=== PATIENT | male | born 1985 | race Caucasian/White ===

== ENCOUNTER → 2016-09-27 | Outpatient (CLI) | payer BC ==
[2016-09-27 13:12] LABS: HEMOGLOBIN 15.8 gm/dl (14.0-17.5); RED BLOOD COUNT 4.99 M/UL (4.20-5.50)
== END ==
LOC: LAB 12:37
PROVIDERS: Internal Medicine Rheumatology
DX: Z51.81 Encounter for therapeutic drug level monitoring (principal); Z79.899 Other long term (current) drug therapy
CPT/HCPCS: 36415; 84450; 84460; 84520; 85025

== ENCOUNTER 2020-08-27 11:36 | Observation (INO) | payer OTHER ==
[~2020-08-27] VITALS: Ht 172.7 cm; Wt 81.6 kg
[~2020-08-27 11:36] MED LIST: ASPIR 8181 MG PO; BETAPACE 80MG T80 MG PO; BETAPACE80 MG PO; CARDIZEM CD240 MG PO; ECOTRIN81 MG PO; FOLIC ACID 1 MG1 MG PO; K-DUR TAB 10 M10 MEQ PO; PREDNISONE10 MG PO; PRINIVIL20 MG PO; SOTALOL80 MG PO
[2020-08-27 12:44] LABS: RED BLOOD COUNT 5.38 M/UL (4.20-5.50); WHITE BLOOD COUNT 10.4 K/UL (4.5-11.0)
[2020-08-27 13:22] LABS: BUN/CREATININE RATIO 13 (0-10)
[2020-08-27] MEDS ORDERED: ENBREL50 MG/1 ML SQ (13:40)
[2020-08-27] MEDS ORDERED: FLONASE 0.05% N16 GM (14:11)
[2020-08-27] MEDS ORDERED: LISINOPRIL20 MG PO (14:11)
[2020-08-27] MEDS ORDERED: FLOXIN 0.3% OTIC5 ML EARBOTH (14:14)
[2020-08-28 02:30] LABS: HEMOGLOBIN 14.9 gm/dl (14.0-17.5); RED BLOOD COUNT 4.79 M/UL (4.20-5.50); WHITE BLOOD COUNT 6.6 K/UL (4.5-11.0)
[2020-08-28] MEDS ORDERED: BETAPACE 80MG T80 MG PO (10:47)
== END 2020-08-28 12:57 | disposition home or self-care (01) ==
LOC: ER1 11:36 → PROG CARE 13:57 → CDU 13:57 → PROG CARE 13:57
PROVIDERS: Physician Assistant; Physician Assistant Medical; ADMIT Internal Medicine
DX: I48.0 Paroxysmal atrial fibrillation (principal); I10 Essential (primary) hypertension; M06.9 Rheumatoid arthritis, unspecified; R03.1 Nonspecific low blood-pressure reading; F17.290 Nicotine dependence, other tobacco product, uncomplicated; Z20.822 Contact with and (suspected) exposure to COVID-19; Z79.82 Long term (current) use of aspirin; Z79.899 Other long term (current) drug therapy
CPT/HCPCS: 36415; 71045; 80053; 82550; 82553; 83735; 83874; 83880; 84439; 84443; 84484; 85025; 85027; 85610; 85730; 93005; 96374; 99285; G0378; U0002

== ENCOUNTER → 2020-10-18 | Outpatient (CLI) | payer OTHER ==
[~2020-10-18] MED LIST changes: +ENBREL50 MG/1 ML SQ; +FLONASE 0.05% N16 GM; +FLOXIN 0.3% OTIC5 ML EARBOTH; +LISINOPRIL20 MG PO
== END ==
LOC: SLEEP 11:19
DX: R29.818 Other symptoms and signs involving the nervous system (principal)
CPT/HCPCS: 95810

== ENCOUNTER → 2021-07-28 | Outpatient (CLI) | payer OTHER | LOC: EXRD 09:55 | DX: R10.9 Unspecified abdominal pain (principal); Z87.442 Personal history of urinary calculi | CPT/HCPCS: 74018 ==